=== PATIENT | male | born 1960 | race Caucasian/White ===

== ENCOUNTER 2017-11-17 11:02 | Emergency (ER) | payer MEDICARE, MEDICAID ==
[2017-11-17 11:46] LABS: Hemoglobin 13.3 g/dL (14.0-18.0); Mean Corpuscular HGB CONC 32.9 g/dL (32.0-36.0); Mean Corpuscular Hemoglobin 25.7 pg (27.0-31.0); Mean Platelet Volume 7.3 fL (7.4-10.4); Platelet Count 209 thou/uL (130-400); RBC Distribution Width 14.6 % (11.5-14.5); White Blood Cell (WBC) Count 2.9 thou/uL (4.8-10.8)
[2017-11-17 11:56] LABS: Bilirubin Small (Negative); Blood, Urine Negative (Negative); Clarity CLEAR (Clear); Glucose, Urine (Dipstick) Negative (Negative); Leukocyte Negative (Negative); Nitrite Negative (Negative); Protein, Urine (Dipstick) Trace mg/dL (Neg-Trace); Specific Gravity, Urine 1.024 (1.002-1.036)
[2017-11-17 11:58] LABS: ALT (SGPT) 18 U/L (8-55); AST (SGOT) 22 U/L (5-34); Acetaminophen Less than 6.0 mcg/mL (10.0-30.0); Albumin 3.9 g/dL (3.5-5.0); Alcohol Less than 10 mg/dL (Less than 10); Alkaline Phosphatase 74 U/L (40-150); Anion Gap 13 mmol/L (10-20); BUN (Urea Nitrogen) 15 mg/dL (8.4-25.7); Bilirubin, Total 0.2 mg/dL (0.2-1.2); Calc. Creatinine Clearance 0 mL/min (70-130); Calcium 7.5 mg/dL (7.8-10.44); Carbon Dioxide 25 mmol/L (22-29); Chloride 100 mmol/L (98-107); Estimated GFR-MDRD 78; Globulin 3.3 g/dL (2.4-3.5); Glucose 135 mg/dL (70-105); Potassium 3.6 mmol/L (3.5-5.1); Protein, Total 7.2 g/dL (6.0-8.3); Salicylate Less than 8.0 mg/dL (15.0-30.0); Sodium 134 mmol/L (136-145)
[2017-11-17 12:06] LABS: Band 10 % (5-11); Eosinophils 1 % (0-10); Lymphocytes 19 % (21-51); MDiff Complete? YES; Microcytosis SLIGHT = 6-15 cells (100X) (0-5/hpf); Monocytes 6 % (0-10); Neutrophil 62 % (42-75); PLT Morphology Comment Appears Adequate; Reactive Lymphocytes 2 % (0-10)
[2017-11-17 12:12] LABS: Amphetamine Not Detected (NotDetected); Barbiturates Screen Not Detected (NotDetected); Benzodiazepine Screen Not Detected (NotDetected); Cocaine Metabolite Screen Not Detected (NotDetected); Medtox Reader # READER 4; Methadone Not Detected (NotDetected); Methamphetamine Not Detected (NotDetected); Opiate Screen Not Detected (NotDetected); Oxycodone Screen Not Detected (NotDetected); Phencyclidine (PCP) Not Detected (NotDetected); THC/Cannabinoid Screen Not Detected (NotDetected); Tricyclic Screen Detected (NotDetected)
[2017-11-17 12:13] LABS: Medtox Control Line Valid? VALID (VALID)
== END 2017-11-17 12:10 | disposition home or self-care (01) ==
LOC: ERS 11:02
DX: R10.9 Unspecified abdominal pain (principal); F20.9 Schizophrenia, unspecified; E86.0 Dehydration; I10 Essential (primary) hypertension
CPT/HCPCS: 36415; 80053; 80306; 80307; 81003; 84443; 85025; 99284

== ENCOUNTER 2017-11-22 12:16 | Emergency (ER) | payer MEDICARE, MEDICAID ==
[2017-11-22 12:59] LABS: Amphetamine Not Detected (NotDetected); Barbiturates Screen Not Detected (NotDetected); Benzodiazepine Screen Not Detected (NotDetected); Cocaine Metabolite Screen Not Detected (NotDetected); Medtox Control Line Valid? VALID (VALID); Medtox Reader # READER 4; Methadone Not Detected (NotDetected); Methamphetamine Not Detected (NotDetected); Opiate Screen Not Detected (NotDetected); Oxycodone Screen Not Detected (NotDetected); Phencyclidine (PCP) Not Detected (NotDetected); THC/Cannabinoid Screen Not Detected (NotDetected); Tricyclic Screen Not Detected (NotDetected)
[2017-11-22 13:05] LABS: #Basophils 0.1 thou/uL (0.0-0.2); #Lymphocytes 0.8 thou/uL (1.20-3.40); #Monocytes 0.6 thou/uL (0.11-0.59); #Neutrophils 3.9 thou/uL (1.40-6.50); %Basophils 1.2 % (0.0-1.0); %Eosinophils 0.8 % (0.0-10.0); %Lymphocytes 14.4 % (21.0-51.0); %Monocytes 10.7 % (0.0-10.0); %Neutrophils 72.9 % (42.0-75.0); Hemoglobin 13.7 g/dL (14.0-18.0); Mean Corpuscular HGB CONC 31.6 g/dL (32.0-36.0); Mean Corpuscular Hemoglobin 24.6 pg (27.0-31.0); Mean Corpuscular Volume 77.9 fl (80.0-94.0); Mean Platelet Volume 8.7 fL (7.4-10.4); Platelet Count 176 thou/uL (130-400); RBC Distribution Width 14.7 % (11.5-14.5); Red Blood Cell (RBC) Count 5.58 mill/uL (4.70-6.10); White Blood Cell (WBC) Count 5.4 thou/uL (4.8-10.8)
[2017-11-22 13:13] LABS: ALT (SGPT) 51 U/L (8-55); AST (SGOT) 42 U/L (5-34); Acetaminophen Less than 6.0 mcg/mL (10.0-30.0); Albumin 4.1 g/dL (3.5-5.0); Alcohol Less than 10 mg/dL (Less than 10); Alkaline Phosphatase 71 U/L (40-150); Anion Gap 18 mmol/L (10-20); BUN (Urea Nitrogen) 10 mg/dL (8.4-25.7); Bilirubin, Total 0.5 mg/dL (0.2-1.2); Calc. Creatinine Clearance 0 mL/min (70-130); Carbon Dioxide 22 mmol/L (22-29); Chloride 99 mmol/L (98-107); Estimated GFR-MDRD 70; Globulin 3.5 g/dL (2.4-3.5); Glucose 233 mg/dL (70-105); Potassium 3.3 mmol/L (3.5-5.1); Protein, Total 7.6 g/dL (6.0-8.3); Salicylate Less than 8.0 mg/dL (15.0-30.0); Sodium 136 mmol/L (136-145)
[2017-11-22] MEDS ORDERED: Lorazepam 1 MG TAB ONE (13:46)
== END 2017-11-22 18:18 ==
LOC: ERS 12:16
DX: F29 Unspecified psychosis not due to a substance or known physiological condition (principal); I10 Essential (primary) hypertension; F20.9 Schizophrenia, unspecified; F17.210 Nicotine dependence, cigarettes, uncomplicated; Z79.899 Other long term (current) drug therapy
CPT/HCPCS: 36415; 80053; 80306; 80307; 85025; 99284

== ENCOUNTER 2018-04-29 16:33 | Emergency (ER) | payer MEDICARE, MEDICAID ==
[~2018-04-29 16:33] MED LIST: ISOVUE-370 76%-LOCM 1 ML ONE
[2018-04-29 17:41] LABS: #Eosinphils 0.1 thou/uL (0.0-0.7); #Lymphocytes 0.8 thou/uL (1.20-3.40); #Monocytes 0.8 thou/uL (0.11-0.59); #Neutrophils 6.6 thou/uL (1.40-6.50); %Basophils 0.2 % (0.0-1.0); %Eosinophils 0.7 % (0.0-10.0); %Lymphocytes 10.1 % (21.0-51.0); %Monocytes 9.1 % (0.0-10.0); %Neutrophils 79.9 % (42.0-75.0); Hemoglobin 9.2 g/dL (14.0-18.0); Mean Corpuscular HGB CONC 32.4 g/dL (32.0-36.0); Mean Corpuscular Hemoglobin 22.4 pg (27.0-31.0); Mean Corpuscular Volume 69.2 fL (78.0-98.0); Mean Platelet Volume 7.6 fL (7.4-10.4); Platelet Count 304 thou/uL (130-400); RBC Distribution Width 15.9 % (11.5-14.5); Red Blood Cell (RBC) Count 4.12 mill/uL (4.70-6.10); White Blood Cell (WBC) Count 8.2 thou/uL (4.8-10.8)
[2018-04-29 17:55] LABS: Anisocytosis SLIGHT = 6-15 cells (100X) (0-5/hpf); Basophilic Stippling SLIGHT = 1-2 cells (100X) (None Seen); Hypochromia SLIGHT = 6-15 cells (100X) (0-5/hpf); MDiff Complete? YES; Microcytosis SLIGHT = 6-15 cells (100X) (0-5/hpf); Ovalocytes SLIGHT = 2-5 cells (100X) (0-1/hpf); PLT Morphology Comment Appears Adequate; Polychromasia SLIGHT = 2-3 cells (100X) (0-2/hpf); Target Cells SLIGHT = 2-5 cells (100X) (0-1/hpf)
[2018-04-29 18:01] LABS: ALT (SGPT) 8 U/L (8-55); AST (SGOT) 9 U/L (5-34); Albumin 3.6 g/dL (3.5-5.0); Alkaline Phosphatase 70 U/L (40-150); Anion Gap 14 mmol/L (10-20); BUN (Urea Nitrogen) 27 mg/dL (8.4-25.7); Bilirubin, Total 0.2 mg/dL (0.2-1.2); Calc. Creatinine Clearance 0 mL/min (70-130); Calcium 7.6 mg/dL (7.8-10.44); Carbon Dioxide 25 mmol/L (22-29); Chloride 103 mmol/L (98-107); Estimated GFR-MDRD 65; Globulin 2.9 g/dL (2.4-3.5); Glucose 150 mg/dL (70-105); Potassium 3.6 mmol/L (3.5-5.1); Protein, Total 6.5 g/dL (6.0-8.3); Sodium 138 mmol/L (136-145)
[2018-04-29] MEDS ORDERED: Ondansetron ODT 4 MG TAB ONE (18:06)
[2018-04-29 18:21] LABS: Acetaminophen Less than 6.0 mcg/mL (10.0-30.0); Alcohol Less than 10 mg/dL (Less than 10); Salicylate Less than 8.0 mg/dL (15.0-30.0)
[2018-04-29 18:24] LABS: Troponin I Less than 0.010 ng/mL (< 0.028)
[2018-04-29 18:54] LABS: Amphetamine Not Detected (NotDetected); Barbiturates Screen Not Detected (NotDetected); Benzodiazepine Screen Not Detected (NotDetected); Cocaine Metabolite Screen Not Detected (NotDetected); Medtox Control Line Valid? VALID (VALID); Medtox Reader # READER 1; Methadone Not Detected (NotDetected); Methamphetamine Not Detected (NotDetected); Opiate Screen Not Detected (NotDetected); Oxycodone Screen Not Detected (NotDetected); Phencyclidine (PCP) Not Detected (NotDetected); THC/Cannabinoid Screen Not Detected (NotDetected); Tricyclic Screen Detected (NotDetected)
--- NOTE | 2018-04-29 22:38 | CT ---
CT ANGIOGRAM OF THE CHEST 04/29/18 HISTORY: Patient is pale and diaphoretic. Patient reports vomiting last night. COMPARISON: None. TECHNIQUE: CT angiogram of the chest is performed in the axial plane. Three dimensional reformatted images are s ubmitted for interpretation. FINDINGS: No mediastinal mass, lymphadenopathy, or hematoma. The heart is within the upper limits of normal. No significant pericardial fluid. There is circumferential mucosal thickening involving the majority of the visualized thoracic esophagus. Trachea and central bronchi are patent. There is cavitation with adjacent pleural and parenchymal fortunato nges in the left upper lobe. This area of cavitation measures 1.5 x 2.7 cm. Correlate for remote infe ctious or inflammatory process such as tuberculosis. There are areas of scarring in the left lower lo be. Atelectatic changes in the right lung are noted. No significant pleural fluid or pneumothorax. Incompletely evaluated hypodense mass involving the mid body of the pancreas, measuring 2.2 x 1.9 cm. Possible cholelithiasis without evidence of cholecystitis. Adequate contrast opacification of the pulmonary artery system at the level of the lobar arteries. Ev aluation of the segmental and subsegmental artery is limited by timing of bolus. No filling defect to suggest thromboembolism. IMPRESSION: 1. No evidence of pulmonary artery embolism to the level of the lobar arteries. 2. Lung parenchymal change in the left upper lobe and left lower lobe as described above. There are adjacent left upper lobe pleural changes. Correlate for remote bouts of infection. Comparison wit h prior imaging would be beneficial to assess for stability of the area of cavitation in the left upp er lobe. 3. Incompletely evaluated mass in the pancreas. Mass is well circumscribed and hypodense. The cu rrent attenuation coefficient is 13 Hounsfield units suggesting a cystic lesion. Nonemergent pancreas protocol CT is recommended. POS: [facility]
== END 2018-04-29 22:31 | disposition home or self-care (01) ==
LOC: ERS 16:33
DX: E86.0 Dehydration (principal); K86.89 Other specified diseases of pancreas; R00.0 Tachycardia, unspecified; I10 Essential (primary) hypertension; F20.9 Schizophrenia, unspecified; F17.210 Nicotine dependence, cigarettes, uncomplicated; Z79.899 Other long term (current) drug therapy
CPT/HCPCS: 36415; 71275; 80053; 80306; 80307; 82553; 83690; 84484; 85025; 85379; 93005; 96360; 96361; Q0162

== ENCOUNTER 2018-05-25 19:16 | Emergency (ER) | payer MEDICARE, MEDICAID ==
[2018-05-25] MEDS ORDERED: diphenhydrAMINE 50 MG/ML VIAL ONE (19:26)
[2018-05-25 19:30] LABS: #Eosinphils 0.1 thou/uL (0.0-0.7); #Lymphocytes 0.9 thou/uL (1.20-3.40); #Monocytes 0.7 thou/uL (0.11-0.59); %Basophils 0.1 % (0.0-1.0); %Monocytes 8.4 % (0.0-10.0); %Neutrophils 78.4 % (42.0-75.0); Hemoglobin 7.8 g/dL (14.0-18.0); Mean Corpuscular HGB CONC 32.1 g/dL (32.0-36.0); Mean Corpuscular Hemoglobin 20.6 pg (27.0-31.0); Mean Platelet Volume 9.9 fL (7.4-10.4); Platelet Count 307 thou/uL (130-400); RBC Distribution Width 17.5 % (11.5-14.5); Red Blood Cell (RBC) Count 3.78 mill/uL (4.70-6.10); White Blood Cell (WBC) Count 7.7 thou/uL (4.8-10.8)
[2018-05-25 19:55] LABS: ALT (SGPT) 8 U/L (8-55); AST (SGOT) 12 U/L (5-34); Alkaline Phosphatase 88 U/L (40-150); Anion Gap 14 mmol/L (10-20); BUN (Urea Nitrogen) 14 mg/dL (8.4-25.7); Bilirubin, Total 0.4 mg/dL (0.2-1.2); Calc. Creatinine Clearance 0 mL/min (70-130); Calcium 7.4 mg/dL (7.8-10.44); Carbon Dioxide 20 mmol/L (22-29); Chloride 106 mmol/L (98-107); Estimated GFR-MDRD 66; Globulin 3.1 g/dL (2.4-3.5); Glucose 173 mg/dL (70-105); Lipase 36 U/L (8-78); Potassium 3.4 mmol/L (3.5-5.1); Protein, Total 7.1 g/dL (6.0-8.3); Sodium 137 mmol/L (136-145)
[2018-05-25 21:00] LABS: Bilirubin Negative (Negative); Blood, Urine Negative (Negative); Clarity CLEAR (Clear); Glucose, Urine (Dipstick) Negative (Negative); Leukocyte Negative (Negative); Nitrite Negative (Negative); Protein, Urine (Dipstick) Negative (Neg-Trace); Specific Gravity, Urine 1.013 (1.002-1.036); pH, Urine 6.5 (5.0-9.0)
--- NOTE | 2018-05-28 11:37 | EKG ---
Test Reason : TACHYCARDIA Blood Pressure : / mmHG Vent. Rate : 122 BPM Atrial Rate : 122 BPM P-R Int : 138 ms QRS Dur : 090 ms QT Int : 328 ms P-R-T Axes : 041 -18 050 degrees QTc Int : 467 ms Sinus tachycardia Otherwise normal ECG Confirmed by SHAKIRA GARLAND DO ([id number]), city editor ALMA DELIA MEADOWS ([id number] on 05/28/2018 11:36:57 AM Referred By: Confirmed By:SHAKIRA GARLAND DO
== END 2018-05-25 23:57 | disposition home or self-care (01) ==
LOC: ERS 19:16
DX: R10.9 Unspecified abdominal pain (principal); I10 Essential (primary) hypertension; F20.9 Schizophrenia, unspecified; F17.210 Nicotine dependence, cigarettes, uncomplicated
CPT/HCPCS: 51798; 80053; 81003; 83690; 85025; 87086; 93005; 96372; J1200